=== PATIENT | female | born 1980 | race Caucasian/White ===

== ENCOUNTER 2016-08-31 08:15 | Emergency (ER) | payer BC ==
[2016-08-31 08:46] VITALS: BP 134/70
--- NOTE | 2016-08-31 09:58 | UC ---
Respiratory Complaint HPI - HPI Summary HPI Summary: Headache, left sided facial pressure, bilateral ear pain, "yellow" nasal congestion, PND, bilateral neck pain "puffy, feels swollen", sore throat, painful swallowing, "a little" nonproductive cough, decreased appetite, nausea without vomiting, myalgais (this morning), "warm then cold", and "feel run down " for three days; worsened this morning. No known fever. Patient wants and antibiotic and prednisone. 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 PCP Crissy Nagel. [ End ] - History of Current Complaint Chief Complaint: UCRespiratory Stated Complaint: SINUS,ACHY,SORE THROAT Time Seen by Provider: 08/31/16 08:59 Hx Obtained From: Patient Hx Last Menstrual Period: 08/19/16 ?: No Onset/Duration: Gradual Onset Timing: Constant Severity Initially: Moderate Severity Currently: Moderate Character: Cough: Productive Associated Signs And Symptoms: Positive: URI, Nasal Congestion, Hoarseness, Sinus Discomfort - Risk Factors Pulmonary Embolism Risk Factors: Negative Cardiac Risk Factors: Negative Pseudomonas Risk Factors: Negative Tuberculosis Risk Factors: Negative - Allergies/Home Medications Allergies/Adverse Reactions: Allergies Allergy/AdvReac Type Severity Reaction Status Date / Time Ciprofloxacin Allergy Palpitation Verified 08/31/16 08:41 s Levofloxacin [From Levaquin] Allergy Palpitation Verified 08/31/16 08:41 s Penicillins Allergy Rash Verified 08/31/16 08:41 Sulfa Antibiotics Allergy Rash Verified 08/31/16 08:41 avoids augmentin Allergy See Comment Uncoded 08/31/16 08:41 Home Medications: Home Medications Albuterol HFA INHALER* [Ventolin HFA Inhaler*] 1 - 2 puff INH Q4H PRN 08/31/16 [ History Confirmed 08/31/16] Allergy Shots 2 vial SUBCUT SEE INSTRUCTIONS 08/31/16 [History Confirmed ] Cetirizine* [ZyrTEC*] 10 mg PO DAILY 08/31/16 [History Confirmed 08/31/16] Drospirenone-Ethinyl Estradiol [Rica 3-0.02 mg] 1 tab PO DAILY 08/31/16 [History Confirmed 08/31/16] Fluticasone-Salmeterol 100-50* [Advair Diskus 100-50*] 1 puff INH BID 08/31/16 [ History Confirmed 08/31/16] PMH/Surg Hx/FS Hx/Imm Hx Previously Healthy: Yes Cardiovascular History Of: Reports: Hypertension - Just when ill Respiratory History Of: Reports: Asthma - Surgical History Surgical History: Yes Surgery Procedure, Year, and Place: jaw - Family History Known Family History: Positive: None - Social History Occupation: Employed Full-time Alcohol Use: Occasionally Substance Use Type: None Smoking Status (MU): Never Smoked Tobacco - Immunization History Most Recent Influenza Vaccination: Not the Season Review of Systems Constitutional: Fever, Chills, Fatigue Skin: Negative Eyes: Negative ENT: Negative Respiratory: Shortness Of Breath, Cough Cardiovascular: Negative Gastrointestinal: Negative Genitourinary: Negative Motor: Negative Neurovascular: Negative Musculoskeletal: Negative Neurological: Negative Psychological: Negative All Other Systems Reviewed And Are Negative: Yes Physical Exam Triage Information Reviewed: Yes Appearance: Well-Appearing, No Pain Distress, Well-Nourished Vital Signs: Initial Vital Signs Temp 98.6 F 08/31/16 08:37 Pulse 80 08/31/16 08:37 Resp 16 08/31/16 08:37 BP 134/70 08/31/16 08:37 Pulse Ox 100 08/31/16 08:37 Vital Signs Reviewed: Yes Eye Exam: Normal ENT Exam: Normal ENT: Positive: Normal ENT inspection, Pharynx normal, Nasal drainage, TMs normal , Other: - b/l frontal sinus tenderness to palpation Dental Exam: Normal Neck exam: Normal Neck: Positive: 1 Respiratory Exam: Normal Cardiovascular Exam: Normal Musculoskeletal Exam: Normal Neurological Exam: Normal Psychological Exam: Normal Skin Exam: Normal UC Diagnostic Evaluation - Laboratory O2 Sat by Pulse Oximetry: 100 Respiratory Course/Dx - Course Course Of Treatment: appears viral at this time. 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 - Differential Dx/Diagnosis Differential Diagnosis/HQI/PQRI: Asthma, Bronchitis, Laryngitis, Lower Resp Infection, Sinusitis Provider Diagnoses: sinusitis Discharge - Discharge Plan Condition: Good Disposition: HOME Prescriptions: predniSONE TAB* [Deltasone TAB*] 40 mg PO DAILY #10 tab Patient Education Materials: Sinusitis (ED) Referrals: Crissy Nagel MD [Primary Care Provider] - 3 Days
== END 2016-08-31 10:14 | disposition home or self-care (01) ==
LOC: UCCORT 08:15
DX: J32.9 Chronic sinusitis, unspecified (principal); Z88.1 Allergy status to other antibiotic agents; Z88.2 Allergy status to sulfonamides; Z88.0 Allergy status to penicillin
CPT/HCPCS: 87502; 87651; 99212; G0463

== ENCOUNTER 2016-09-07 09:42 | Emergency (ER) | payer BC ==
--- NOTE | 2016-09-07 10:31 | UC ---
Throat Pain/Nasal Ricky HPI - HPI Summary HPI Summary: SINUS PAIN AND PRESSURE X 10 DAYS + FEVER, CHILLS, NASAL CONGESTION , BILATERAL EAR PAIN - History of Current Complaint Chief Complaint: UCGeneralIllness Stated Complaint: SINUS,SORE THROAT Time Seen by Provider: 09/07/16 10:23 Hx Obtained From: Patient Hx Last Menstrual Period: 08/26/16 Onset/Duration: Gradual Onset, Lasting Days - 10, Still Present Severity: Moderate Cough: Nonproductive Associated Signs & Symptoms: Positive: Sinus Discomfort, Nasal Discharge, Fever. Negative: Wheezing - Allergies/Home Medications Allergies/Adverse Reactions: Allergies Allergy/AdvReac Type Severity Reaction Status Date / Time Ciprofloxacin Allergy Palpitation Verified 09/07/16 09:54 s Levofloxacin [From Levaquin] Allergy Palpitation Verified 09/07/16 09:54 s Penicillins Allergy Rash Verified 09/07/16 09:54 Sulfa Antibiotics Allergy Rash Verified 09/07/16 09:54 avoids augmentin Allergy See Comment Uncoded 09/07/16 09:54 PMH/Surg Hx/FS Hx/Imm Hx Cardiovascular History Of: Reports: Hypertension - Just when ill Respiratory History Of: Reports: Asthma - Surgical History Surgical History: Yes Surgery Procedure, Year, and Place: jaw - Family History Known Family History: Positive: None Negative: Diabetes - Social History Alcohol Use: Occasionally Substance Use Type: None Smoking Status (MU): Never Smoked Tobacco - Immunization History Most Recent Influenza Vaccination: Not the 2015/2016 Season Review of Systems Constitutional: Fever, Chills Skin: Negative Eyes: Negative ENT: Sore Throat, Ear Ache, Nasal Discharge Respiratory: Negative Cardiovascular: Negative Gastrointestinal: Negative All Other Systems Reviewed And Are Negative: Yes Physical Exam Triage Information Reviewed: Yes Appearance: Well-Appearing, Well-Nourished, Pain Distress Vital Signs: Initial Vital Signs Temp 100 F 09/07/16 09:55 Pulse 115 09/07/16 09:55 Resp 20 09/07/16 09:55 BP 126/80 09/07/16 09:55 Pulse Ox 100 09/07/16 09:55 Vital Signs Reviewed: Yes Eyes: Positive: Conjunctiva Clear ENT: Positive: Normal ENT inspection, Hearing grossly normal, Pharyngeal erythema, Nasal congestion, Nasal drainage, TMs normal Neck exam: Normal Neck: Positive: Supple, Nontender Respiratory: Positive: Chest non-tender, Lungs clear, Normal breath sounds Cardiovascular: Positive: RRR, No Murmur, Pulses Normal Abdominal Exam: Normal Skin Exam: Normal Throat Pain/Nasal Course/Dx - Differential Dx/Diagnosis Provider Diagnoses: SINUSITIS Discharge - Discharge Plan Condition: Stable Disposition: HOME Prescriptions: DOXYcycline CAP(*) [DOXYcycline 100MG CAP(*)] 100 mg PO BID #20 cap predniSONE TAB* [Deltasone TAB*] 40 mg PO DAILY #10 tab Patient Education Materials: Sinusitis (ED) Forms: *Work Release Referrals: Crissy Nagel MD [Primary Care Provider] - If Needed
[2016-09-07 10:39] VITALS: BP 130/84
== END 2016-09-07 10:44 | disposition home or self-care (01) ==
LOC: UCCORT 09:42
DX: J32.9 Chronic sinusitis, unspecified (principal); J45.909 Unspecified asthma, uncomplicated; Z88.0 Allergy status to penicillin; Z88.1 Allergy status to other antibiotic agents; Z88.2 Allergy status to sulfonamides
CPT/HCPCS: 99212; G0463

== ENCOUNTER 2017-05-29 17:18 | Emergency (ER) | payer BC ==
[2017-05-29 18:35] VITALS: BP 141/84
--- NOTE | 2017-05-29 19:12 | UC ---
Throat Pain/Nasal Ricky HPI - HPI Summary HPI Summary: TEN DAYS OF SINUS PRESSURE PAIN; EAR FULLNESS. COUGH. 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 - History of Current Complaint Chief Complaint: UCRespiratory Stated Complaint: COUGH/SINUSES Time Seen by Provider: 05/29/17 18:25 Hx Obtained From: Patient Hx Last Menstrual Period: 05/24/17 Onset/Duration: Gradual Onset, Lasting Weeks Severity: Moderate Pain Intensity: 8 Pain Scale Used: 0-10 Numeric Cough: Nonproductive Associated Signs & Symptoms: Positive: Hoarseness, Sinus Discomfort, Nasal Discharge - Epiglottits Risk Factors Epiglottis Risk Factors: Negative - Allergies/Home Medications Allergies/Adverse Reactions: Allergies Allergy/AdvReac Type Severity Reaction Status Date / Time Ciprofloxacin Allergy Palpitation Verified 05/29/17 18:28 s Levofloxacin [From Levaquin] Allergy Palpitation Verified 05/29/17 18:28 s Penicillins Allergy Rash Verified 05/29/17 18:28 Sulfa Antibiotics Allergy Rash Verified 05/29/17 18:28 avoids augmentin Allergy See Comment Uncoded 05/29/17 18:28 PMH/Surg Hx/FS Hx/Imm Hx Previously Healthy: Yes - Surgical History Surgical History: Yes Surgery Procedure, Year, and Place: jaw - Family History Known Family History: Positive: None Negative: Diabetes - Social History Occupation: Employed Full-time Lives: With Family Alcohol Use: Weekly Alcohol Amount: once/week Substance Use Type: None Smoking Status (MU): Never Smoked Tobacco - Immunization History Most Recent Influenza Vaccination: no Review of Systems Constitutional: Negative Skin: Negative Eyes: Negative ENT: Sore Throat, Nasal Discharge, Sinus Congestion, Sinus Pain/Tenderness Respiratory: Cough Cardiovascular: Negative Gastrointestinal: Negative Genitourinary: Negative Motor: Negative Neurovascular: Negative Musculoskeletal: Negative Neurological: Negative Psychological: Negative Is Patient Immunocompromised?: No All Other Systems Reviewed And Are Negative: Yes Physical Exam Triage Information Reviewed: Yes Appearance: No Pain Distress, Well-Nourished, Ill-Appearing Vital Signs: Initial Vital Signs Temp 97.8 F 05/29/17 18:29 Pulse 97 05/29/17 18:29 Resp 16 05/29/17 18:29 BP 141/84 05/29/17 18:29 Pulse Ox 98 05/29/17 18:29 Vital Signs Reviewed: Yes Eye Exam: Normal ENT: Positive: Hearing grossly normal, Nasal congestion, Nasal drainage, TM bulging, TM dull Dental Exam: Normal Neck exam: Normal Neck: Positive: Supple, Nontender, No Lymphadenopathy Respiratory Exam: Other - COUGH Respiratory: Positive: Chest non-tender, Lungs clear, Normal breath sounds, No respiratory distress, No accessory muscle use Cardiovascular Exam: Normal Cardiovascular: Positive: RRR, No Murmur, Pulses Normal Abdominal Exam: Normal Abdomen Description: Positive: Nontender, No Organomegaly Musculoskeletal Exam: Normal Neurological Exam: Normal Psychological Exam: Normal Skin Exam: Normal Throat Pain/Nasal Course/Dx - Differential Dx/Diagnosis Differential Diagnosis/HQI/PQRI: Otitis Media, Sinusitis, Tonsillitis Provider Diagnoses: SINUSITIS; ASTHMA Discharge - Discharge Plan Condition: Stable Disposition: HOME Prescriptions: DOXYcycline CAP(*) [DOXYcycline 100MG CAP(*)] 100 mg PO BID #20 cap predniSONE TAB* [Deltasone TAB*] 10 mg PO DAILY #28 tab Patient Education Materials: Sinusitis (ED) Referrals: Crissy Nagel MD [Primary Care Provider] -
== END 2017-05-29 19:01 | disposition home or self-care (01) ==
LOC: UCCORT 17:18
DX: J32.9 Chronic sinusitis, unspecified (principal); J45.909 Unspecified asthma, uncomplicated; Z88.1 Allergy status to other antibiotic agents; Z88.0 Allergy status to penicillin; Z88.2 Allergy status to sulfonamides
CPT/HCPCS: 99212; G0463

== ENCOUNTER 2019-02-27 10:09 | Emergency (ER) | payer BC ==
[2019-02-27 10:40] VITALS: BP 129/95
--- NOTE | 2019-02-27 11:39 | UC ---
Respiratory Complaint HPI - HPI Summary HPI Summary: Pt presents with c/o worsening cough, congestion, and "burning" in chest with deep breaths. Denies chest pain. Pt has hx of asthma and has been using Albuterol INH more frequently. Pt also states that she has bilateral ear pain with left ear worse than right. X 1 week. - History of Current Complaint Chief Complaint: UCRespiratory Stated Complaint: EAR PAIN, SORE THROAT, COUGH Time Seen by Provider: 02/27/19 11:31 Hx Obtained From: Patient Hx Last Menstrual Period: 01/26/19 ?: No Onset/Duration: Gradual Onset, Lasting Days, Still Present Timing: Constant Severity Initially: Mild Severity Currently: Moderate Pain Intensity: 5 Character: Cough: Nonproductive Aggravating Factors: Deep Breaths Alleviating Factors: Bronchodilator Associated Signs And Symptoms: Positive: URI, Nasal Congestion Related History: Seasonal Allergies - Risk Factors Pulmonary Embolism Risk Factors: Negative Cardiac Risk Factors: Negative Pseudomonas Risk Factors: Chronic Lung Disease Tuberculosis Risk Factors: Negative - Allergies/Home Medications Allergies/Adverse Reactions: Allergies Allergy/AdvReac Type Severity Reaction Status Date / Time Penicillins Allergy Rash Verified 02/27/19 10:42 Sulfa (Sulfonamide Allergy Rash Verified 02/27/19 10:42 Antibiotics) amoxicillin [From Augmentin] AdvReac See Comment Verified 02/27/19 10:42 ciprofloxacin AdvReac Palpitation Verified 02/27/19 10:42 s clavulanic acid AdvReac See Comment Verified 02/27/19 10:42 [From Augmentin] levofloxacin [From Levaquin] AdvReac Palpitation Verified 02/27/19 10:42 s avoids augmentin AdvReac See Comment Uncoded 02/27/19 10:43 Home Medications: Home Medications [place]-3 Fatty Acids (Nf) [Fish Oil (NF)] 1,000 mg PO DAILY 02/27/19 [History Confirmed 02/27/19] PMH/Surg Hx/FS Hx/Imm Hx Previously Healthy: Yes Respiratory History: Asthma - Surgical History Surgical History: Yes Surgery Procedure, Year, and Place: jaw - Family History Known Family History: Positive: None Negative: Diabetes - Social History Occupation: Employed Full-time Lives: With Family Alcohol Use: Weekly Alcohol Amount: once/week Substance Use Type: None Smoking Status (MU): Never Smoked Tobacco Have You Smoked in the Last Year: No - Immunization History Most Recent Influenza Vaccination: no Review of Systems All Other Systems Reviewed And Are Negative: Yes Constitutional: Positive: Chills, Fatigue Skin: Positive: Negative Eyes: Positive: Negative ENT: Positive: Sinus Congestion Respiratory: Positive: Cough Cardiovascular: Positive: Negative Gastrointestinal: Positive: Negative Genitourinary: Positive: Negative Motor: Positive: Negative Neurovascular: Positive: Negative Musculoskeletal: Positive: Negative Neurological: Positive: Negative Psychological: Positive: Negative Is Patient Immunocompromised?: No Physical Exam Triage Information Reviewed: Yes Appearance: Ill-Appearing Vital Signs: Initial Vital Signs Temp 98.9 F 02/27/19 10:31 Pulse 98 02/27/19 10:31 Resp 16 02/27/19 10:31 BP 129/95 02/27/19 10:31 Pulse Ox 100 02/27/19 10:31 Vital Signs Reviewed: Yes Eye Exam: Normal ENT: Positive: Nasal congestion, TM bulging Dental Exam: Normal Neck exam: Normal Respiratory: Positive: Decreased breath sounds - LLL Cardiovascular Exam: Normal Musculoskeletal Exam: Normal Neurological Exam: Normal Psychological Exam: Normal Skin Exam: Normal Respiratory Course/Dx - Differential Dx/Diagnosis Differential Diagnosis/HQI/PQRI: Bronchitis, Influenza, Sinusitis Provider Diagnosis: Bronchitis Discharge ED - Sign-Out/Discharge Documenting (check all that apply): Patient Departure All imaging exams completed and their final reports reviewed: No Studies - Discharge Plan Condition: Stable Disposition: HOME Prescriptions: DOXYcycline CAP(*) [DOXYcycline 100MG CAP(*)] 100 mg PO Q12H #20 cap predniSONE TAB* [Deltasone 10 MG TAB*] 30 mg PO DAILY #12 tab Patient Education Materials: Acute Bronchitis (ED) Referrals: Reena Cat MD [Primary Care Provider] - If Needed - Billing Disposition and Condition Condition: STABLE Disposition: Home - Attestation Statements Provider Attestation: Per institutional requirements, I have reviewed the chart, however, I was not consulted specifically or made aware of this patient by the midlevel provider. I did not personally evaluate, interact with , or disposition this patient.
== END 2019-02-27 11:50 | disposition home or self-care (01) ==
LOC: UCCORT 10:09
DX: J45.909 Unspecified asthma, uncomplicated (principal)
CPT/HCPCS: 99212; G0463